=== PATIENT | female | born 1950 | race Native Hawaiian/Other Pacific Islander ===

== ENCOUNTER 2017-07-24 13:17 | Emergency (ER) | payer OTHER ==
[~2017-07-24] VITALS: Ht 167.6 cm; Wt 63.5 kg
[2017-07-24 14:19] LABS: PLATELET COUNT 236 K/uL (152-353)
[2017-07-24 14:37] LABS: POTASSIUM 3.6 mmol/L (3.6-5.2)
== END 2017-07-24 15:35 | disposition home or self-care (01) ==
LOC: ED 13:17
DX: K56.7 Ileus, unspecified (principal); K50.90 Crohn's disease, unspecified, without complications
CPT/HCPCS: 74022; 80053; 81000; 85027; 87081; 87804; 87880; 99283